=== PATIENT | female | born 1980 | race Hispanic/Latino ===

== ENCOUNTER 2019-12-23 04:47 | Inpatient (IN) | payer OTHER ==
--- OUTSIDE RECORDS SUMMARY | 2019-12-23 04:50 | XMS REPORT | Continuity of Care Document ---
:1980 Author Organization [facility] t Address [facility] [place] [id number] Care Team Providers Name Role Phone Unavailable Unavailable Unavailable Problems This patient has no known problems. Allergies, Adverse Reactions, Alerts This patient has no known allergies or adverse reactions. Medications This patient has no known medications. Procedures This patient has no known procedures. Results This patient has no known results.
[2019-12-23] MEDS ORDERED: BUTORPHANOL 1 MG/ML INJ IV PRN (05:06)
[2019-12-23] MEDS ORDERED: Ringers Lactate 1,000 ML IV PRN (05:06)
[2019-12-23] MEDS ORDERED: CARBOPROST TROME 250 MCG/ML IM PRN (05:06)
[2019-12-23] MEDS ORDERED: METHYLERGONOVINE 0.2MG/ML AMP IM PRN ×2 (05:06→14:42)
[2019-12-23] MEDS ORDERED: PROMETHAZINE INJ 25 MG/ML AMP IM PRN (05:06)
[2019-12-23 05:37] LABS: Absolute Lymphocytes (CBC) 3.9 K/uL (0.7-4.9); Basophils % 0.6 % (0-1.3); Hematocrit 36.6 % (36.0-45.0); Lymphocytes % 28.9 % (15.3-44.8); RBC Red Blood Cell Count 4.16 M/uL (3.86-4.86); Urine Appearance CLOUDY; Urine Bilirubin NEGATIVE (NEG); Urine Blood 1+ (NEG); Urine Color YELLOW; Urine Glucose NEGATIVE (NEG); Urine Protein NEGATIVE (NEG); Urine Specific Gravity 1.025 (1.005-1.030)
[2019-12-23 05:39] LABS: Urine Microscopic Reflex ORDER UMIC
[2019-12-23 05:40] VITALS: BMI 27.3
[2019-12-23 05:48] LABS: Urine Bacteria 20-50 /HPF (<20); Urine Culture Reflex Order REFLEXED; Urine Urothelial Cells <5 /HPF (NONE SEEN)
[2019-12-23] MEDS ORDERED: Ringers Lactate 1,000 ML IV SCH (06:00)
[2019-12-23] MEDS ORDERED: OXYTOCIN/LR 20 UNIT/1,000 ML BAG IV SCH (06:00)
--- NOTE | 2019-12-23 10:45 | PN ---
The patient is having firm contractions every one and half minutes. She is now 2. I feel no evidenc e of baby's fingers beside the head. So as the baby comes down, I expect this will be less of an iss ue. Baby is doing quite well on the monitor. The patient is doing quite well, doing breathing techn iques. ORLANDO/BRYN Voice ID: [id number] Report ID: [id number]
--- NOTE | 2019-12-23 10:50 | PREOPHP ---
Date of Admission: 12/23/2019 Subjective: Patient will be 39 years old tomorrow, 5, para 3, seen in conjunction with Dr. Americo vicente, high-risk tech, [facility]. Dr. Katz recommended delivery at 38 to 39 weeks. The patient is 38 weeks and 3 to 4 days at this point. Rh positive. Immune to rubella. Negative beta strep screen. Negative COVID status. Family History: Noncontributory. Allergies: THE PATIENT HAS NO ALLERGIES. Past Surgical History: The patient has had breast augmentation and liposuction. Otherwise, no surge enzo. Medications: She was on numerous class C medications during the first trimester. These have all bee n stopped. Social History: Does not smoke. Physical Examination: HEENT: Clear pupils, equal, round, reactive to light and accommodation. Conjunctivae well perfused. No oral, lingual, or buccal lesions. Chest and Lungs: Clear. Heart: Without murmurs, thrills, heaves, or rubs. Breasts: Without masses on previous visits. Extremities: Clear without edema, cyanosis, or clubbin g. Patient is 2.5 cm, rupture of membranes, clear fluid was noted. Baby's hand was up around the ear, b ut baby's head has come down into position. There is no signs of any other type of problem. This sh ould correct as the baby comes down lower. Full labor talk given. The patient has also been approved for tubal, which we will do later this evening or tomorrow morning depending on when she delivers. ORLANDO/BRYN Voice ID: [id number]
--- NOTE | 2019-12-23 11:57 | PN ---
The patient is now 4.5 cm, has urge to push, but she is still only -1 station. Baby looks good on th e monitor. She has had no analgesics yet. She wants to try to avoid epidural. We will give her 1 m g of Stadol IV, 25 mg of Phenergan IM and if this does not help, of course then we will consider epid ural. I think what she gets to 5 cm she should make more rapid progress. Still is having no back la bor, although I think at this point, the baby is posterior. Pelvic rocks suggested. ORLANDO/BRYN Voice ID: [id number] Report ID: [id number]
[2019-12-23] MEDS ORDERED: FENTANYL CITR 100 MCG/2 ML IV ONE (12:35)
[2019-12-23] MEDS ORDERED: BUPIVACAINE 0.25% PF 30 ML VIAL IV ONE (12:36)
[2019-12-23] MEDS ORDERED: FENTANYL/BUPIVACAINE/NS/PF 200 MCG/100 ML BAG EP ONE (12:37)
[2019-12-23] MEDS ORDERED: Oxycodone HCl/Acetaminophen 1 TAB TAB PO PRN ×2 (14:42)
[2019-12-23] MEDS ORDERED: METHYLERGONOVINE 0.2 MG TAB PO PRN (14:42)
[2019-12-23] MEDS ORDERED: KETOROLAC 30 MG/ML INJ IV PRN (14:42)
[2019-12-23] MEDS ORDERED: ACETAMINOPHEN 500 MG TAB PO PRN (14:42)
[2019-12-23] MEDS ORDERED: IBUPROFEN 600 MG TAB PO PRN (15:00)
[2019-12-23] MEDS ORDERED: CEFAZOLIN/NS 1gm 1 GM/50 ML BAG IVPB ONE (15:00)
[2019-12-23] MEDS ORDERED: CEFAZOLIN/SWI 1gm 1 GM/10 ML SYR ONE (15:29)
[2019-12-23] MEDS ORDERED: CEFAZOLIN/SWI 1gm 1 GM/10 ML SYR IVP SCH (15:45)
[2019-12-23] MEDS ORDERED: CEFAZOLIN/SWI 1gm 1 GM/10 ML SYR IVP ONE (16:00)
[2019-12-24] MEDS ORDERED: MEPERIDINE HCL 25 MG/ML SYR IVP PRN
--- NOTE | 2019-12-24 01:31 | OP ---
Surgeon: Darek Marcum MD Aleksandra Amos will be 39 years old tomorrow, 5, para 3, 38 weeks 4 days, followed antepa rtum with Dr. Katz, high-clinic specialist in [place], who recommended delivery between 38 and 39 wee ks. 2.5 to 3 cm this morning, rupture of membranes, clear fluid. Stadol 1 mg IV, Phenergan 25 mg IM at 5 cm, requested and received epidural anesthesia, shortly after getting the epidural was noted to be complete, second stage of about 20 minutes. Spontaneous vaginal delivery of a 6-pound 10-ounce m dale , Apgars 9 and 9. No episiotomy. No lacerations. Retained placenta for greater than 25 m inutes, then manual removal, suspect mild accreta, but uterus contracted down well. IV drip Pitocin, massage. Estimated blood loss 350 cc or less. Rh positive, immune to rubella. Negative COVID test ing. Tolerated all procedures well, will be given 1 g of Ancef for prophylaxis. Final Diagnoses: Intrauterine gestation, 38 weeks 4 days, consultation with high-clinic specialist, mary alice wiley induction, vaginal delivery, epidural anesthesia, retained placenta, suspect mild accreta, tubal sterilization pending tomorrow. ORLANDO/BRYN Voice ID: [id number] Report ID: [id number]
[2019-12-24 04:02] LABS: RPR (Rapid Plasma Reagin) NON-REACT (NON-REACT)
[2019-12-24] MEDS ORDERED: CEFAZOLIN/SWI 1gm 1 GM/10 ML SYR ONE (06:33)
[2019-12-24] MEDS ORDERED: BUPIVACAINE 0.5% PF 10 ML VIAL ONE (07:17)
[2019-12-24] MEDS ORDERED: FENTANYL CITR 100 MCG/2 ML ONE (07:18)
[2019-12-24] MEDS ORDERED: propofoL 200 MG/20 ML VIAL IV ONE (07:18)
[2019-12-24] MEDS ORDERED: LIDOCAINE 2% MPF 5 ML VIAL ONE ×2 (07:19→07:25)
[2019-12-24] MEDS ORDERED: MIDAZOLAM HCL 2 MG/2 ML INJ ONE (07:19)
[2019-12-24] MEDS ORDERED: GLYCOPYRROLATE 0.2 MG/ML SYR ONE (07:20)
[2019-12-24] MEDS ORDERED: ONDANSETRON 4 MG/2 ML VIAL ONE (07:20)
[2019-12-24] MEDS ORDERED: NEOSTIGMINE 1 MG/ML -5 ML ONE (07:22)
[2019-12-24] MEDS ORDERED: KETOROLAC 30 MG/ML INJ ONE (07:22)
[2019-12-24] MEDS ORDERED: ROCURONIUM 50 MG/5 ML VIAL IV ONE (07:23)
[2019-12-24] MEDS ORDERED: LIDOCAINE 2% W/EPI 1:200,000 MPF 20 ML VIAL IM ONE (07:40)
[2019-12-24 08:32] VITALS: O2SAT 98
[2019-12-24] MEDS ORDERED: Mastisol Adhesive Liq ONE ×2 (10:50→10:55)
[2019-12-24] MEDS ORDERED: Tdap (Diph,Pertuss(Acell),Tet Vac) 0.5 ML SYR IMVAC ONE (16:57)
[2019-12-24] MEDS ORDERED: KETOROLAC 30 MG/ML INJ IM ONE (17:00)
[2019-12-24 19:52] VITALS: BP 112/69; TEMP 98
--- NOTE | 2019-12-24 22:16 | PN ---
Lochia is normal. Vital signs are all stable. The patient is alert this morning. Says she wishes t o proceed with a tubal. Anesthesia has not come up yet. As soon as they are ready, we will proceed with sterilization. ORLANDO/BRYN Voice ID: [id number] Report ID: [id number]
--- NOTE | 2019-12-24 22:16 | OP ---
Surgeon: Darek Marcum MD At 39-year-old female, now post for sterilization. Full preoperative counseling concerning procedure and possible complications including infection, blood loss, anesthetic complications, injury to bladder, bowel, ureter, postoperative complications, clots in legs and pneumonia, failure rate of at least 2 to 07/999. Patient knows fully well. Does not constitute all the possible problems that could occur during or following surgery. Epidural employed, local anesthetic employed. Just below the umbilicus, a small incision was made in transverse manner. The fascia was identified and entered. Peritoneum was entered bluntly. Fascial tags were placed. The right tube was grasped in the midportion, traced out to the fimbriated portion. A knuckle of tube was produced and a freehand tie x3 with 2-0 plain was placed. Segment of tube was removed. Good hemostasis was seen. The tube was allowed to fall away. Similar procedure was carried out on the contralateral side without difficulty. At no point with Essure device noted the patient had this done before. The fascial tags were reapproximated. Two reinforcing stitches were placed in the fascia. The subcutaneous tissue closed followed by subcuticular stich of 3-0 vicril to close skin. Tolerated procdure well sent to recovery in good condition. DICTATION ENDS HERE OR[place]O/BRYN Voice ID: [id number] Report ID: [id number] [place]
[2019-12-25] MEDS ORDERED: Ringers Lactate 1,000 ML IV ONE (04:34)
[2019-12-28 02:21] LABS: HBsAG Nonreactive (Nonreactive)
== END 2019-12-24 21:17 | disposition home or self-care (01) | DRG 798 ==
LOC: 2ND-WCNRSY 04:47 → 2ND-WC 04:58
PROVIDERS: ADMIT Specialist; ATTEND Specialist
PROC: 10D17Z9 Manual Extraction of Products of Conception, Retained, Via Natural or Artificial Opening (ICD-10-PCS; principal; 2019-12-23)
PROC: 10907ZC Drainage of Amniotic Fluid, Therapeutic from Products of Conception, Via Natural or Artificial Opening (ICD-10-PCS; 2019-12-23)
PROC: 3E033VJ Introduction of Other Hormone into Peripheral Vein, Percutaneous Approach (ICD-10-PCS; 2019-12-23)
PROC: 0UL74ZZ Occlusion of Bilateral Fallopian Tubes, Percutaneous Endoscopic Approach (ICD-10-PCS; 2019-12-24)
DX: O73.0 Retained placenta without hemorrhage (principal); Z37.0 Single live birth; Z3A.49 Greater than 42 weeks gestation of pregnancy; Z20.828 Contact with and (suspected) exposure to other viral communicable diseases; Z23 Encounter for immunization
CPT/HCPCS: 36415; 81003; 81015; 85025; 86592; 86901; 87086; 87088; 87340; 88302; 88305; 90471; 90715; J0595; J0690; J2210; J2250; J2405; J2550; J2590; J2704; J2710; J3010; J7120; U0003

== ENCOUNTER 2022-08-31 09:08 | Day surgery (SDC) | payer OTHER ==
--- NOTE | 2022-08-29 07:15 | EKG ---
Test Date: 2022-08-28 Test Time: 16:05:38 Youth Specialist: GURINDER MEASUREMENT RESULTS: Intervals: Rate: 61 AL: 142 QRSD: 76 QT: 414 QTc: 416 [place]: P: 63 AL: 142 QRS: 65 T: 35 INTERPRETIVE STATEMENTS: Normal sinus rhythm Normal ECG No previous ECG available for comparison Electronically Signed On 08-29-22 07:13:59 CDT by Yousuf Nguyễn
[2022-08-31] MEDS ORDERED: Ringers Lactate 1,000 ML IV ONE (09:35)
[2022-08-31] MEDS ORDERED: SCOPOLAMINE HYDROBROMIDE PATCH TD ONE (09:59)
[2022-08-31] MEDS ORDERED: EPINEPHRINE/PF 1 MG/ML AMP ONE (10:43)
[2022-08-31] MEDS ORDERED: ROCURONIUM 50 MG/5 ML VIAL IV ONE (10:51)
[2022-08-31] MEDS ORDERED: MIDAZOLAM HCL 2 MG/2 ML INJ ONE (10:51)
[2022-08-31] MEDS ORDERED: dexAMETHasone 10 MG/ML VIAL ONE (10:51)
[2022-08-31] MEDS ORDERED: propofoL 200 MG/20 ML VIAL IV ONE ×2 (10:51→11:19)
[2022-08-31] MEDS ORDERED: FENTANYL CITR 100 MCG/2 ML ONE (10:51)
[2022-08-31] MEDS ORDERED: ONDANSETRON 4 MG/2 ML VIAL ONE (10:52)
[2022-08-31] MEDS ORDERED: LIDOCAINE 2% MPF 5 ML VIAL ONE (10:52)
--- NOTE | 2022-08-31 11:33 | P.OP ---
Ship'S Officer: NONE,NONE Preoperative diagnosis: Left vocal fold neoplasm Postoperative diagnosis: Same Primary procedure: Direct laryngoscopy with telescope and biopsy/removal vocal fold lesion Anesthesia: General Estimated blood loss: Less than 5 mL Specimen: Left true vocal fold Findings: Exophytic, pedunculated pink mass Operative Technique: After adequate plane of anesthesia, a shoulder roll was placed and the neck was extended. A plastic tooth guard was placed to protect the upper teeth. A [employer] laryngoscope fitted with 15 degree rigid telescope was used to perform a direct laryngoscopy including examination of the posterior pharyngeal wall, arytenoids, false vocal folds, epiglottis, vallecula and piriform sinus. A red irregular pedunculated pink lesion was noted on the midportion of the left true vocal fold. No other lesions were noted. The laryngoscope was placed in suspension to allow two-handed surgery. The mass was grasped with a cup forcep and gently retracted medially. A right angled scissor was used to cut and remove the lesion at its base. The lesion was completely removed with this maneuver. Bleeding was noted at the attachment place and direct pressure was applied with a cottonoid soaked with epinephrine. After several minutes the area was reexamined and appeared to be hemostatic. The pledget was removed the area was suctioned. Photodocumentation of the site after excision was obtained. The laryngoscope was released from suspension and carefully withdrawn. The tooth guard was removed. There is no evidence of injury to the lips, teeth, tongue or gingiva. Complications: None Implants: None Fluids & blood products: See anesthesia record Transferred to: Recovery Room Condition: Good
[2022-08-31 12:45] VITALS: BP 121/55; TEMP 97.8; O2SAT 96
== END 2022-08-31 12:25 | disposition home or self-care (01) ==
LOC: OR 09:08
PROVIDERS: ATTEND Otolaryngology
PROC: 0CBV8ZZ Excision of Left Vocal Cord, Via Natural or Artificial Opening Endoscopic (ICD-10-PCS; principal; 2022-08-31 10:30)
DX: D14.1 Benign neoplasm of larynx (principal)
CPT/HCPCS: 93005; 88305; 31541; J2704 ×2; J0171; J2001; J2250; J3010; J1100; J2405; J7120